=== PATIENT | female | born 1995 | race Caucasian/White ===

== ENCOUNTER 2016-08-24 10:14 | Emergency (ER) | payer OTHER ==
[~2016-08-24] VITALS: Ht 162.6 cm; Wt 55.0 kg
[~2016-08-24 10:14] MED LIST: ALBU8I INH
[2016-08-24 10:15] VITALS: BP 127/85; PULSE 87; RESP 15; TEMP 98.2; O2SAT 98
[2016-08-24] MEDS ORDERED: VENTAER INH (10:33)
[2016-08-24] MEDS ORDERED: IBUP800T23 PO (10:48)
[2016-08-24] MEDS ORDERED: ROBA500T PO (10:48)
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
[2016-08-24] MEDS ORDERED: METHOCARBAMOL 500 MG TAB PO ONE (11:00)
[2016-08-24] MEDS ORDERED: IBUPROFEN 800 MG TAB PO ONE (11:00)
== END 2016-08-24 11:30 | disposition home or self-care (01) ==
LOC: NEPD 10:14
DX: S16.1XXA Strain of muscle, fascia and tendon at neck level, initial encounter (principal); V49.50XA Passenger injured in collision with unspecified motor vehicles in traffic accident, initial encounter; Z88.1 Allergy status to other antibiotic agents; Z79.899 Other long term (current) drug therapy
CPT/HCPCS: 99283